=== PATIENT | female | born 1965 | race Asian ===

== ENCOUNTER 2024-08-08 16:33 | Emergency (ER) | payer SELFPAY ==
[2024-08-08] VITALS (10 sets, daily range): BP systolic 109–110; BP diastolic 73–76; PULSE 89–207; RESP 12–30; TEMP 36.1–36.6; O2SAT 92–100
--- NOTE | 2024-08-08 16:38 | ECG_ITS ---
Test Date: 2024-08-08 16:44:41 Measurements Intervals [place] Rate: 206 P: 0 MA: 0 QRS: 49 QRSD: 87 T: 71 QT: 194 QTc: 360 Interpretive Statements SUPRAVENTRICULAR TACHYCARDIA EARLY PRECORDIAL R/S TRANSITION NONSPECIFIC ST & T-WAVE ABNORMALITY- DIFFUSE LEADS BASELINE ARTIFACT- I, III, AVR, AVL ABNORMAL ECG No previous ECG available for comparison Electronically Signed On 08-08-2024 18:28:02 CDT by Jered Suggs D.O.
[2024-08-08] MEDS: ADENOSINE IV SOLN 6 MG/2 ML VIAL IV PUSH (16:47)
--- NOTE | 2024-08-08 16:48 | ECG_ITS ---
Test Date: 2024-08-08 16:52:03 Measurements Intervals [place] Rate: 104 P: 60 [place]: 157 QRS: 35 QRSD: 69 T: 52 QT: 339 QTc: 446 Interpretive Statements SINUS TACHYCARDIA BASELINE ARTIFACT- I, II, AVR, AVL BORDERLINE ECG Compared to ECG 08/08/2024 16:44:41 Supraventricular tachycardia no longer present ST-T wave abnormality no longer present Electronically Signed On 08-08-2024 18:28:39 CDT by Jered Suggs D.O.
[2024-08-08] MEDS: METOPROLOL TARTRATE INJ 5 MG/5 ML VIAL IV PUSH (16:49)
[2024-08-08 17:13] LABS: Basophils Absolute Auto 0.1 K/mm3 (0.0-0.1); Basophils Percent Auto 0.7 % (0.2-1.2); Eosinophils Absolute Auto 0.4 K/mm3 (0-0.3); Eosinophils Percent Auto 3.1 % (0-4.4); Hematocrit 44.3 % (37.0-47.0); Hemoglobin 14.6 g/dL (12.0-15.0); Immature Granulocyte Absolute 0.03 K/mm3 (0.00-0.031); Immature Granulocyte Percent A 0.2 % (0-0.5); Lymphocytes Absolute Auto 5.45 K/mm3 (0.9-3.2); Lymphocytes Percent Auto 40.6 % (18.3-44.2); Mean Corpuscular Hemoglobin 29.7 pg (26-34); Mean Corpuscular Volume 90.2 fl (80-100); Mean Platelet Volume 10.7 fl (7.4-10.4); Monocytes Absolute Auto 0.9 K/mm3 (0.1-0.6); Monocytes Percent Auto 6.9 % (2.6-8.5); Neutrophils Absolute Auto 6.5 K/mm3 (1.3-6.7); Neutrophils Percent Auto 48.5 % (45.5-73.1); Platelet Count Result 340 k/mm3 (150-375); Red Blood Count 4.91 M/mm3 (4.2-5.4); Red Cell Distribution Width 12.3 % (11.5-14.5); White Blood Count 13.4 K/mm3 (4.5-10.0)
[2024-08-08 17:21] LABS: Alanine Aminotransferase 33 U/L (6-35); Albumin Level 4.3 g/dL (3.5-5.1); Alkaline Phosphatase 117 U/L (38-126); Anion Gap 13 mmol/L (4-12); Aspartate Amino Transferase 42 U/L (14-36); Bilirubin,Total 0.3 mg/dL (0.2-1.3); Blood Urea Nitrogen 14 mg/dL (7-17); Calcium 8.8 mg/dL (8.4-10.2); Carbon Dioxide 26 mmol/L (22-30); Chloride 102 mmol/L (98-107); Estimated CRCL calculation 55 ml/min; Estimated Glomerular Filt Rate > 60; Glucose 213 mg/dL (65-110); Potassium 3.8 mmol/L (3.4-5.0); Sodium 141 mmol/L (137-145)
[2024-08-08 17:33] LABS: Troponin I < 0.012 ng/mL (0.000-0.034)
--- NOTE | 2024-08-08 17:47 | ED.ARRPALP ---
HPI - Arrhythmia/Palpitations General Chief Complaint: Arrhythmia/Palpitations Stated Complaint: HEART RACING Time Seen by Provider: 08/08/24 16:59 Source: patient and family Mode of arrival: wheelchair Limitations: language barrier History of Present Illness HPI narrative: 58-year-old with a history of diabetes, intermittent palpitation was brought in by daughter with a complains of palpitations for past 1 day on and off. However since this afternoon she was having chest discomfort. She denies any shortness of breath or lightheadedness. MD complaint: rapid heart beat Onset (ago): day(s) (1) Duration: constant Severity: moderate Context: occurred during rest Associated symptoms: denies other symptoms Related Data Allergies Allergy/AdvReac Type Severity Reaction Status Date / Time No Known Allergies Allergy Verified 08/08/24 16:42 Review of Systems Review of Systems: All systems reviewed & are unremarkable except as noted in HPI and below Constitutional: Constitutional: Reports no additional constitutional complaints Eyes: Eyes: Reports no additional eye complaints ENT: Reports system reviewed and no additional complaints, except as documented Cardiovascular: Cardiovascular: Reports as per HPI Respiratory: Respiratory: Reports no additional respiratory complaints Gastrointestinal: Gastrointestinal: Reports no additional gastrointestinal complaints Musculoskeletal: Musculoskeletal: Reports no additional musculoskeletal complaints Exam Narrative: GENERAL: Well-appearing, well-nourished, and in no acute distress. HEAD: Normocephalic, atraumatic. EYES: PERRLA and EOMI. ENT: Nares clear, no rhinorrhea or epistaxis. Mucous membranes moist. NECK: Supple. CHEST: Clear to auscultation. No respiratory distress. HEART: T tachycardic ABDOMEN: Soft, nontender, nondistended, normal active bowel sounds. EXTREMITIES: Normal range of motion. No edema. SKIN: Warm, dry, no rash. NEURO: No focal deficits. Alert and oriented x3. PSYCH: Normal mood and affect. Course Course Emergency Course: Patient was given IV a adenosis 6 mg, patient converted back to normal sinus rhythm. IV Lopressor 5 mg was administered soon after. She remained in normal sinus with a heart rate of 83. I did review lab work with the patient and her daughter. Advised her to take metoprolol as prescribed. Vital Signs Vital signs: Vital Signs Pulse Rate 206 H 08/08/24 16:41 Respiratory Rate 22 H 08/08/24 16:41 Pulse Oximetry 97 08/08/24 16:41 Temperature 36.1 C L 08/08/24 16:42 Pulse Rate 110 H 08/08/24 17:08 Respiratory Rate 12 08/08/24 16:49 Blood Pressure 110/73 08/08/24 16:49 Pulse Oximetry 98 08/08/24 16:54 Oxygen Delivery Room Air 08/08/24 16:54 MDM - Arrhythmia/Palpitations Lab Data Attestation: I reviewed the patient's lab results. 08/08/24 17:06 08/08/24 17:06 Labs: Lab Results 08/08/24 Range/Units 17:06 WBC Pending RBC Pending Hgb Pending Hct Pending MCV Pending MCH Pending MCHC Pending RDW Pending Plt Count Pending MPV Pending Immature Gran % (Auto) Pending Neut % (Auto) Pending Lymph % (Auto) Pending [place] % (Auto) Pending Eos % (Auto) Pending Baso % (Auto) Pending Lymph # (Auto) Pending [place] # (Auto) Pending Eos # (Auto) Pending Baso # (Auto) Pending Abs Immat Gran (auto) Pending Absolute Neuts (auto) Pending Absolute Nucleated RBC Pending Nucleated RBC % Pending Sodium 141 (137-145) mmol/L Potassium 3.8 (3.4-5.0) mmol/L Chloride 102 (98-107) mmol/L Carbon Dioxide 26 (22-30) mmol/L Anion Gap 13 H (4-12) mmol/L BUN 14 (7-17) mg/dL Creatinine 0.87 (0.7-1.0) mg/dL Estim Creat Clear Calc 55 ml/min Estimated GFR > 60 (59 - ) Glucose 213 H (65-110) mg/dL Calcium 8.8 (8.4-10.2) mg/dL Total Bilirubin 0.3 (0.2-1.3) mg/dL AST 42 H (14-36) U/L ALT 33 (6-35) U/L Alkaline Phosphatase 117 (38-126) U/L Troponin I < 0.012 (0.000-0.034) ng/mL Total Protein 8.0 (6.3-8.2) g/dL Albumin 4.3 (3.5-5.1) g/dL ECG Data EKG #1: ECG completion date: 08/08/24 ECG completion time: 16:44 EKG Interpretation: bradycardia (204), SVT and no ST changes EKG #2: ECG completion date: 08/08/24 ECG completion time: 16:52 EKG Interpretation: tachycardia (104), no ectopy, normal QT and NL axis Discharge Plan Discharge Clinical Impression: Supraventricular tachycardia Patient Disposition: Home, Self-Care Condition: Stable Instructions: Supraventricular Tachycardia (ED) Patient Language: [place] Prescriptions: New metoprolol succinate [Toprol XL] 25 mg tablet extended release 24 hr 25 mg PO BID Qty: 30 0RF Follow-up/Referrals: Eli Lopez MD [Physician] - PHYSICIAN,[employer] [Primary Care Provider] - Time of Disposition: 17:47
== END 2024-08-08 18:11 | disposition home or self-care (01) ==
PROVIDERS: Emergency Provider Family Medicine
DX: I47.10 Supraventricular tachycardia, unspecified (principal); E11.9 Type 2 diabetes mellitus without complications; R94.31 Abnormal electrocardiogram [ECG] [EKG]
CPT/HCPCS: 36415; 80053; 84484; 85025; 93005; 96374; 96375; 99284; J0153; J7030